=== PATIENT | female | born 1985 | race Two or more races ===

== ENCOUNTER 2020-10-11 08:04 | Outpatient (CLI) | payer OTHER | END 2020-10-11 09:08 | disposition home or self-care (01) | LOC: SONOGRAMA 08:04 | PROVIDERS: ATTEND Pathology Anatomic Pathology & Clinical Pathology | DX: E04.2 Nontoxic multinodular goiter (principal) ==

== ENCOUNTER 2020-10-18 08:27 | Outpatient (CLI) | payer OTHER | END 2020-10-18 15:12 | disposition home or self-care (01) | LOC: OFIC 805 08:27 | PROVIDERS: ATTEND Otolaryngology | DX: C73 Malignant neoplasm of thyroid gland (principal); R49.0 Dysphonia ==

== ENCOUNTER 2020-10-25 13:30 | Inpatient (IN) | payer OTHER ==
[~2020-10-25] VITALS: Ht 157.5 cm; Wt 68.0 kg
[2020-10-25] MEDS ORDERED: FLONASE16 GM (14:49)
== END 2020-10-30 13:20 | disposition home or self-care (01) | DRG 626 ==
LOC: SURH 10-28 13:30 → O/R 10-29 05:20 → SURH 10-29 05:20
PROVIDERS: ADMIT Surgery; ATTEND Surgery
PROC: 07T20ZZ Resection of Left Neck Lymphatic, Open Approach (ICD-10-PCS; 2020-10-29)
PROC: 0GTK0ZZ Resection of Thyroid Gland, Open Approach (ICD-10-PCS; principal; 2020-10-29 07:15)
DX: C73 Malignant neoplasm of thyroid gland (principal); C77.0 Secondary and unspecified malignant neoplasm of lymph nodes of head, face and neck; R49.0 Dysphonia

== ENCOUNTER → 2020-12-24 | Outpatient (CLI) | payer OTHER ==
[~2020-12-24] MED LIST: FLONASE16 GM
== END | disposition home or self-care (01) ==
LOC: NUCLEAR 10:00
PROVIDERS: ATTEND Internal Medicine Sports Medicine
DX: C73 Malignant neoplasm of thyroid gland (principal); E89.0 Postprocedural hypothyroidism
CPT/HCPCS: 79005; A9517

== ENCOUNTER → 2020-12-31 13:07 | Outpatient (CLI) | payer OTHER | END | disposition home or self-care (01) | LOC: NUCLEAR 09:30 | PROVIDERS: ATTEND Internal Medicine Sports Medicine | DX: C73 Malignant neoplasm of thyroid gland (principal); E89.0 Postprocedural hypothyroidism | CPT/HCPCS: 78018; A9548 ==

== ENCOUNTER 2021-04-15 08:12 | Outpatient (CLI) | payer OTHER | END 2021-04-15 08:22 | disposition home or self-care (01) | LOC: SONOGRAMA 08:12 | PROVIDERS: ATTEND Pathology Anatomic Pathology & Clinical Pathology | DX: R59.0 Localized enlarged lymph nodes (principal) ==